=== PATIENT | male | born 1985 | race Caucasian/White ===

== ENCOUNTER 2018-05-21 12:16 | Emergency (ER) | payer MEDICAID ==
[~2018-05-21] VITALS: Ht 185.4 cm; Wt 97.5 kg
[2018-05-21 12:16] VITALS: BP 132/74
[2018-05-21] MEDS ORDERED: IBUPROFEN 400 MG TABLET ONE (12:30)
[2018-05-21] MEDS ORDERED: IBUPROFEN 400 MG TABLET PO ONE (12:30)
--- NOTE | 2018-05-21 12:57 | NUR ---
Patient discharged to home in stable condition. Written and verbal after care instructions given. Patient verbalizes understanding of instruction.
== END 2018-05-21 12:58 | disposition home or self-care (01) ==
LOC: ER 12:21
DX: S29.012A Strain of muscle and tendon of back wall of thorax, initial encounter (principal); V49.49XA Driver injured in collision with other motor vehicles in traffic accident, initial encounter; Y93.89 Activity, other specified; Y92.410 Unspecified street and highway as the place of occurrence of the external cause; Y99.8 Other external cause status
CPT/HCPCS: 72074; 99283; A4606